=== PATIENT | female | born 1955 | race Caucasian/White ===

== ENCOUNTER 2022-09-26 01:55 | Emergency (ER) | payer OTHER ==
[~2022-09-26] VITALS: Ht 152.4 cm; Wt 72.0 kg
[~2022-09-26 01:55] MED LIST: ATOR20TA49 PO; CEPH500C PO; HYDR-3455 PO; NAPR1TAB21 PO
[2022-09-26 02:09] VITALS: BP 152/99
[2022-09-26] MEDS ORDERED: LACTATED RINGERS 1,000 ML IV STA (02:14)
[2022-09-26] MEDS ORDERED: KETOROLAC 30 MG/ML VIAL IVP STA (02:14)
--- NOTE | 2022-09-26 02:14 | ED GU-Female ---
General Chief Complaint: - Reproductive Stated Complaint: STOMACH PAINS Nursing Triage Note: Pt presents with c/o R flank and abdominal pain radiating to her back. She reports this has been ongoing for approx 10 days, she was recently given abx for a UTI by [facility]. History of Present Illness Date Seen by Provider: Sep 26, 2022 Time Seen by Provider: 02:13 Initial Comments 67-year-old female presents with right-sided abdominal pain. She reportedly had been going on for about 4 days but to the nurses about 10 days. Patient reports that the pain radiates to her back. That she was recently treated for UTI by [facility]. She has some associated nausea, vomiting and diarrhea. She comes tonight because the pain was significantly worse. She reports she has not slept in a couple days because of the pain. Allergies and Home Medications Allergies Coded Allergies: No Known Drug Allergies (Unverified , 07/26/16) Patient Home Medication List Home Medication List Reviewed: Yes Atorvastatin Calcium (Lipitor) 20 Mg Tablet, 20 MG PO DAILY, (Reported) Entered as Reported by: LC DSOUZA on 07/26/16 1527 Cephalexin (Cephalexin) 500 Mg Capsule, 1 CAP PO TID Prescribed by: CHINA ESPAÑA on 07/30/16 1146 Hydrocodone/Acetaminophen (Vicodin 5-300 mg Tablet) 1 Each Tablet, 1-2 TAB PO Q4-6HR PRN for PAIN Prescribed by: CHINA ESPAÑA on 07/30/16 1146 Naproxen/Esomeprazole Mag (Vimovo Dr 500-20 mg Tablet) 1 Each Tab.ir.dr, 1 EACH PO BID Prescribed by: REESE BOWERS on 07/30/16 1021 Review of Systems Review of Systems Constitutional: No chills, No fever EENTM: no symptoms reported Respiratory: no symptoms reported Cardiovascular: no symptoms reported Gastrointestinal: see HPI, abdominal pain, diarrhea, nausea, vomiting Genitourinary: see HPI Musculoskeletal: back pain Skin: no symptoms reported Psychiatric/Neurological: No Symptoms Reported Past [id number] Hx Past Medical History Reproductive Disorders: No Sexually Transmitted Disease: No HIV/AIDS: No Loss of Vision: Bilateral Hearing Impairment: Denies Adverse Reaction/Blood Tranf: No (N/A) Physical Exam Vital Signs Vital Signs - First Documented 09/26/22 02:09 Temp 36.0 Pulse 102 Resp 20 B/P (MAP) 152/99 (116) Capillary Refill : Less Than 3 Seconds Height, Weight, BMI Height: 5'0.00" Weight: 160lbs. 0.0oz. 72.836886yg; 31.00 BMI Method: General Appearance: WD/WN, no apparent distress Neck: full range of motion, supple Cardiovascular: normal peripheral pulses, regular rate, rhythm Respiratory: lungs clear, normal breath sounds Gastrointestinal: soft; No guarding; tenderness (Right mid to lower quadrant) Extremities: normal range of motion, non-tender Neurologic/Psychiatric: alert, normal mood/affect, oriented x 3 Progress/Results/Core Measures Suspected Sepsis SIRS Temperature: Pulse: 102 Respiratory Rate: 20 Laboratory Tests 09/26/22 02:30: White Blood Count 20.7H Blood Pressure 152 /99 Mean: 116 Laboratory Tests 09/26/22 02:30: Creatinine 1.33H, Platelet Count 333, Total Bilirubin 0.3 Results/Orders Lab Results Laboratory Tests Test 09/26/22 02:00 09/26/22 02:30 Range/Units Urine Color YELLOW Urine Clarity CLOUDY Urine pH 5.0 5-9 Urine Specific [place] >=1.030 1.016-1.022 Urine Protein 1+ H NEGATIVE Urine Glucose (UA) NEGATIVE NEGATIVE Urine Ketones NEGATIVE NEGATIVE Urine Nitrite NEGATIVE NEGATIVE Urine Bilirubin NEGATIVE NEGATIVE Urine Urobilinogen 0.2 < = 1.0 MG/DL Urine Leukocyte Esterase NEGATIVE NEGATIVE Urine RBC (Auto) 3+ H NEGATIVE Urine RBC 50-100 H /HPF Urine WBC 0-2 /HPF Urine Squamous Epithelial Cells 2-5 /HPF Urine Crystals PRESENT H /LPF Urine Amorphous Sediment FEW NAZARIO URATES H /LPF Urine Bacteria NEGATIVE /HPF Urine Casts PRESENT /LPF Urine Hyaline Casts 5-10 H /LPF Urine Mucus LARGE H /LPF Urine Culture Indicated NO White Blood Count 20.7 H 4.3-11.0 10^3/uL Red Blood Count 4.18 3.80-5.11 10^6/uL Hemoglobin 12.5 11.5-16.0 g/dL Hematocrit 37 35-52 % Mean Corpuscular Volume 89 80-99 fL Mean Corpuscular Hemoglobin 30 25-34 pg Mean Corpuscular Hemoglobin Concent 34 32-36 g/dL Red Cell Distribution Width 12.5 10.0-14.5 % Platelet Count 333 130-400 10^3/uL Mean Platelet Volume 9.1 9.0-12.2 fL Immature Granulocyte % (Auto) 0 % Neutrophils (%) (Auto) 85 H 42-75 % Lymphocytes (%) (Auto) 9 L 12-44 % Monocytes (%) (Auto) 4 0-12 % Eosinophils (%) (Auto) 1 0-10 % Basophils (%) (Auto) 0 0-10 % Neutrophils # (Auto) 17.6 H 1.8-7.8 10^3/uL Lymphocytes # (Auto) 1.9 1.0-4.0 10^3/uL Monocytes # (Auto) 0.9 0.0-1.0 10^3/uL Eosinophils # (Auto) 0.1 0.0-0.3 10^3/uL Basophils # (Auto) 0.0 0.0-0.1 10^3/uL Immature Granulocyte # (Auto) 0.1 0.0-0.1 10^3/uL Neutrophils % (Manual) 83 % Lymphocytes % (Manual) 9 % Monocytes % (Manual) 3 % Band Neutrophils 4 % Atypical Lymphocytes 1 % Platelet Estimate NORMAL Blood Morphology Comment NORMAL Sodium Level 135 135-145 MMOL/L Potassium Level 3.7 3.6-5.0 MMOL/L Chloride Level 99 98-107 MMOL/L Carbon Dioxide Level 19 L 21-32 MMOL/L Anion Gap 17 H 5-14 MMOL/L Blood Urea Nitrogen 19 H 7-18 MG/DL Creatinine 1.33 H 0.60-1.30 MG/DL Estimat Glomerular Filtration Rate 43 BUN/Creatinine Ratio 14 Glucose Level 163 H 70-105 MG/DL Calcium Level 9.6 8.5-10.1 MG/DL Corrected Calcium 9.4 8.5-10.1 MG/DL Total Bilirubin 0.3 0.1-1.0 MG/DL Aspartate Amino Transf (AST/SGOT) 15 5-34 U/L Alanine Aminotransferase (ALT/SGPT) 14 0-55 U/L Alkaline Phosphatase 150 H 40-136 U/L C-Reactive Protein 1.20 H <0.50 MG/DL Total Protein 7.9 6.4-8.2 GM/DL Albumin 4.2 3.2-4.5 GM/DL Lipase 39 8-78 U/L My Orders Orders - BENAVIDEZ,DORA L DO Cbc With Automated Diff (09/26/22 02:14) Comprehensive Metabolic Panel (09/26/22 02:14) Lipase (09/26/22 02:14) Ua Culture If Indicated (09/26/22 02:14) Crp Fs (09/26/22 02:14) Ondansetron Injection (Zofran Injectio (09/26/22 02:15) Lactated Ringers (Lr 1000 Ml Iv Solution (09/26/22 02:14) Ed Iv/Invasive Line Start (09/26/22 02:14) Ketorolac Injection (Toradol Injection) (09/26/22 02:14) Manual Differential (09/26/22 02:30) Ct Abdomen/Pelvis W (09/26/22 03:22) Iohexol Injection (Omnipaque 350 Mg/Ml 1 (09/26/22 03:30) Received Contrast (Hold Metformin- Contr (09/26/22 03:30) Ns (Ivpb) (Sodium Chloride 0.9% Ivpb Bag (09/26/22 03:30) Medications Given in ED Current Medications Medications Dose Ordered Sig/Claudia Route Start Time Stop Time Status Last Admin Dose Admin Iohexol 75 ml ONCE ONCE IV 09/26/22 03:30 09/26/22 03:31 DC 09/26/22 03:41 80 ML Ondansetron HCl 4 mg ONCE ONCE IVP 09/26/22 02:15 09/26/22 02:16 DC 09/26/22 02:31 4 MG Sodium Chloride 100 ml ONCE ONCE IV 09/26/22 03:30 09/26/22 03:31 DC 09/26/22 03:42 100 ML Vital Signs/I&O 09/26/22 02:09 Temp 36.0 Pulse 102 Resp 20 B/P (MAP) 152/99 (116) Capillary Refill : Less Than 3 Seconds Blood Pressure Mean: 116 Progress Note : Progress Note Patient CT exam showed some mild hydronephrosis process likely recently passed kidney stone. There is a questionable enteritis. Patient had a elevated white count so we will treat her with Bactrim for enteritis. Patient can use Tylenol or ibuprofen for discomfort. Recommended lots of fluids. She is stable and discharged Departure Impression Primary Impression: Renal colic on right side Additional Impression: Enteritis Disposition: HOME, SELF-CARE Condition: Stable Departure-Patient Inst. Referrals: CHAGO NEWMAN MD (PCP/Family) Primary Care Physician Patient Instructions: Kidney Stone Diet, Renal Colic, Viral Gastroenteritis in Adults Add. Discharge Instructions: Tylenol or ibuprofen as needed for pain, drink plenty of fluids. Follow-up with your primary care provider early next week if symptoms have not completely resolved All discharge instructions reviewed with patient and/or family. Voiced un derstanding. Scripts Sulfamethoxazole/Trimethoprim (Bactrim Ds Tablet) 1 Each Tablet 1 EACH PO BID for 5 Days, #10 TAB Prov: DORA BENAVIDEZ DO 09/26/22 DORA BENAVIDEZ DO Sep 26, 2022 02:14
[2022-09-26] MEDS ORDERED: ONDANSETRON 4 MG/2 ML (SDV) Z0FRAN IVP ONE (02:15)
[2022-09-26 02:25] LABS: BILIRUBIN,URINE NEGATIVE (NEGATIVE); CLARITY,URINE CLOUDY; COLOR,URINE YELLOW; GLUCOSE, URINE (UA) NEGATIVE (NEGATIVE); KETONES,URINE NEGATIVE (NEGATIVE); LEUKOCYTE ESTERASE ,URINE NEGATIVE (NEGATIVE); NITRITE,URINE NEGATIVE (NEGATIVE); PROTEIN,URINE 1+ (NEGATIVE)
[2022-09-26 02:34] LABS: AMORPHOUS SEDIMENT,UR FEW AMOR URATES /LPF; BACTERIA,URINE NEGATIVE /HPF; RBC,URINE 50-100 /HPF; WBC,URINE 0-2 /HPF
[2022-09-26 02:42] LABS: BASOPHILS % (AUTO) 0 % (0-10); EOSINOPHILS # (AUTO) 0.1 10^3/uL (0.0-0.3); EOSINOPHILS % (AUTO) 1 % (0-10); HEMATOCRIT 37 % (35-52); HEMOGLOBIN 12.5 g/dL (11.5-16.0); LYMPHOCYTES # (AUTO) 1.9 10^3/uL (1.0-4.0); LYMPHOCYTES % (AUTO) 9 % (12-44); MEAN CORPUSCULAR HEMOGLOBIN 30 pg (25-34); MEAN CORPUSCULAR HGB CONC 34 g/dL (32-36); MEAN CORPUSCULAR VOLUME 89 fL (80-99); MEAN PLATELET VOLUME 9.1 fL (9.0-12.2); MONOCYTES # (AUTO) 0.9 10^3/uL (0.0-1.0); MONOCYTES % (AUTO) 4 % (0-12); NEUTROPHILS # (AUTO) 17.6 10^3/uL (1.8-7.8); NEUTROPHILS % (AUTO) 85 % (42-75); PLATELET COUNT 333 10^3/uL (130-400); WHITE BLOOD COUNT 20.7 10^3/uL (4.3-11.0)
[2022-09-26 03:01] LABS: ATYPICAL LYMPHOCYTES 1 %; BAND NEUTROPHILS 4 %; LYMPHOCYTES % (MANUAL) 9 %; MONOCYTES % (MANUAL) 3 %; NEUTROPHILS % (MANUAL) 83 %
[2022-09-26 03:02] LABS: PLATELET ESTIMATE NORMAL; RBC MORPH NORMAL
[2022-09-26 03:05] LABS: POTASSIUM 3.7 MMOL/L (3.6-5.0)
[2022-09-26 03:06] LABS: BILIRUBIN,TOTAL 0.3 MG/DL (0.1-1.0); CALCIUM 9.6 MG/DL (8.5-10.1); CREATININE SERUM 1.33 MG/DL (0.60-1.30)
[2022-09-26 03:07] LABS: ALBUMIN 4.2 GM/DL (3.2-4.5); TOTAL PROTEIN 7.9 GM/DL (6.4-8.2)
[2022-09-26] MEDS ORDERED: HOLD METFORMIN - RECEIVED CONTRAST 20 ML VIAL IV SCH (03:30)
[2022-09-26] MEDS ORDERED: IOHEXOL 350 MG/ML 100 ML (OMNIPAQUE 350) VIAL IV ONE (03:30)
[2022-09-26] MEDS ORDERED: NS 100 ML (IVPB) BAG IV ONE (03:30)
[2022-09-26] MEDS ORDERED: SULF1TAB38 PO (04:41)
[2022-09-26] MEDS ORDERED: HYDROcodone/APAP 5 MG/325 MG (LORTAB) TAB PO ONE (04:45)
--- NOTE | 2022-09-26 06:15 | Diagnostic Imaging Report ---
PROCEDURE: CT abdomen and pelvis with contrast. TECHNIQUE: Multiple contiguous axial images were obtained through the abdomen and pelvis after administration of intravenous contrast. Auto Exposure Controls were utilized during the CT exam to meet ALARA standards for radiation dose reduction. All CT scans use one or more of the following dose optimizing techniques: automated exposure control, MA and/or KvP adjustment based on patient size and exam type or iterative reconstruction. INDICATION: Abdominal pain and leukocytosis COMPARISON: None FINDINGS: No focal hepatic or splenic lesion is identified. Gallbladder surgically absent. There is no evidence pancreatic inflammation, however there is an approximately 1.2 cystic nodule in the body of the pancreas and a suspicious 2.3 x 1.6 cm nodular focus in the uncinate process. No adrenal gland lesion is identified. No solid renal mass is identified although there is moderate hydronephrosis and hydroureter. No definite urinary tract stone is seen. There is no appendiceal inflammation. Unopacified bladder is unremarkable. Prostatic nodularity is noted which may be related to hyperplasia. There is diffuse aortoiliac atherosclerotic calcification with mild lumbar spinal degenerative change. IMPRESSION: Mild right hydronephrosis and hydroureter may be related to recently passed stone although no definite calcified stone is seen in the urinary tract. There is a possible 2.3 x 1.6 cm uncinate process mass. This could be better evaluated with CT with pancreatic protocol or MRI for further characterization. Please note the pancreatic findings were not included in the preliminary report. Dictated by: Dictated on workstation # [id number]
== END 2022-09-26 04:51 | disposition home or self-care (01) ==
LOC: EDUNIT# 01:55 → ER FS 01:57
DX: K52.9 Noninfective gastroenteritis and colitis, unspecified (principal); N23 Unspecified renal colic
CPT/HCPCS: 36415; 74177; 80053; 81000; 83690; 85007; 85027; 86141; Q9967